=== PATIENT | male | born 1965 | race Caucasian/White ===

== ENCOUNTER 2021-05-13 07:25 | Day surgery (SDC) | payer OTHER ==
[~2021-05-13] VITALS: Ht 182.9 cm; Wt 88.0 kg
--- NOTE | 2021-05-13 09:20 | NUR ---
05/13/21 0920 Rosina Stover 0916- PT ARRIVES TO PACU AWAKE AND TALKING. PT REPORTS NO PAIN OR NAUSEA. RESP EVEN AND UNLABORED. OXYGEN SAT MID TO HIGH 90'S ON 3L VIA NC.
--- NOTE | 2021-05-14 13:24 | PATH ---
[facility] [address] [place], [place] [address] Signed SPECIMEN(S): A COLON POLYP AT 70 CM SPECIMEN SOURCE: A. COLON POLYP AT 70 CM CLINICAL HISTORY: Screening colonoscopy. Postop: Polyp x 1, diverticulosis. MICROSCOPIC DESCRIPTION: Histologic sections of all submitted blocks are examined by light microscopy. These findings, together with the gross examination, support the pathologic diagnosis. FINAL PATHOLOGIC DIAGNOSIS: Colon, 70 cm, polypectomy: - Tubular adenoma. BRP:em:C2NR GROSS DESCRIPTION: The specimen, labeled "JH, 1," and designated on the requisition "colon polyp at 70 cm," is received in formalin and consists of one rosales soft tissue fragment that measures 0.3 cm in greatest dimension. The specimen is entirely submitted in cassette (A1). AT (under the direct supervision of a pathologist) The Gross Description was prepared using a voice recognition system. The report was reviewed for accuracy; however, sound-alike word errors, addition and/or deletions may occur. If there is any question about this report, please contact Client Services. PERFORMING LABORATORY: The technical component was performed by [employer], [address] [place] [id number] (21 Dealer: Sherley Riggs MD; CLIA# [id number]). The professional interpretation was performed by [employer], [facility], [address] [place] [place] [address]. Diagnostician: Vinay Willis MD Pathologist Electronically Signed 05/14/2021 Copies: PATIENT NAME: STACEY KING PATHOLOGY DATE OF : 67 REPORT #: [id number] PHYSICIAN: TEMI RICARDO PCP: PILLO PHILIP REPORT IS CONFIDENTIAL AND NOT TO BE RELEASED WITHOUT AUTHORIZATION [address] [address] Signed ~ PATIENT NAME: STACEY KING PATHOLOGY DATE OF : 67 REPORT #: [id number] PHYSICIAN: TEMI RICARDO PCP: PILLO PHILIP REPORT IS CONFIDENTIAL AND NOT TO BE RELEASED WITHOUT AUTHORIZATION
--- NOTE | 2021-05-17 10:04 | OR ---
[facility] [address] [place], [place] [address] Signed DATE OF OPERATION: 05/13/2021 SURGEON: Rasheed Hernandez MD PREOPERATIVE DIAGNOSIS: Colon screening. POSTOPERATIVE DIAGNOSES: 1. Sigmoid diverticulosis. 2. Sessile polyp at 70 cm. 3. Internal hemorrhoidal changes. 4. Normal prostate. PROCEDURE: Total colonoscopy to cecum with cold snare polypectomy x1. ANESTHESIA: Intravenous sedation fentanyl 150 mcg, Versed 6 mg. INDICATION: This 56-year-old white man is a patient of LUZMA Yeung. He is referred for colon screening. He has no family history of colon cancer and no symptoms of bleeding, diarrhea or constipation. He understands risks of bleeding, infection, and perforation related to colonoscopy and wished to proceed. FINDINGS: The prep was good. Complete colonoscopy was undertaken to the cecum without question. Number of sigmoid diverticula but no evidence of stricture or other problem. There was a sessile polyp at approximately 70 cm which was excised with cold snare polypectomy technique. Most but not all the polyp was retrieved for pathology, though it was completely excised. Additionally, he was noted to have a normal prostate exam. Internal hemorrhoidal changes were noted without sign of bleeding or other problem. DESCRIPTION OF PROCEDURE: The patient was brought to the endoscopy suite and placed in lateral decubitus position, given intravenous sedation to the point of slurred speech and nystagmus. Digital rectal examination was normal including a normal prostate with normal fissure and symmetric right and left prostatic lobe. An Olympus video colonoscope was passed in the rectum and manipulated into the sigmoid Electronically Signed By: RASHEED HERNANDEZ MD 05/17/21 1004 PATIENT NAME: STACEY KING OPERATIVE REPORT DATE OF : 67 REPORT #: [id number] PHYSICIAN: RASHEED HERNANDEZ MD PCP: BRIDGET TIDWELL PAC REPORT IS CONFIDENTIAL AND NOT TO BE RELEASED WITHOUT AUTHORIZATION [facility] [address] [place], [place] [address] Signed where diverticular changes were noted. The scope was advanced ultimately to the cecum. The ileocecal valve and appendiceal orifice were normal. The colon was less well prepped on the right side, but certainly adequate for purpose at hand. Irrigation was undertaken as necessary. The scope was withdrawn. Examination throughout showed no sign of abnormality until approximately 70 cm from the anal verge, where a sessile polyp was noted, this was excised with cold snare technique. Further withdrawal of the scope confirmed diverticular change of the sigmoid. Upon withdrawal to the rectum, retroflexed view did show internal hemorrhoidal change, but no sign of complication from the scope was straightened, withdrawn and removed. The patient was taken to the recovery room in good condition. CONCLUDING DIAGNOSES: 1. Diverticulosis. 2. Sessile polyp x1. 3. Normal prostate. PLAN: Recommend high-fiber diet. Repeat colonoscopy in five years, sooner if clinically indicated. He will return to the ongoing care of Bridget Tidwell otherwise. MD RICARDO Hawkins/SAMSON /[id number] cc: Bridget Tidwell PA-C Copies: BRIDGET TIDWELL ~ Electronically Signed By: RASHEED HERNANDEZ MD 05/17/21 1004 PATIENT NAME: STACEY KING OPERATIVE REPORT DATE OF : 67 REPORT #: [id number] PHYSICIAN: RASHEED HERNANDEZ MD PCP: BRIDGET TIDWELL PAC REPORT IS CONFIDENTIAL AND NOT TO BE RELEASED WITHOUT AUTHORIZATION
== END 2021-05-13 09:51 | disposition home or self-care (01) ==
LOC: OPS 07:25 → DS 07:25 → OPS 08:30
PROVIDERS: ATTEND Surgery
PROC: 0DBE8ZX Excision of Large Intestine, Via Natural or Artificial Opening Endoscopic, Diagnostic (ICD-10-PCS; principal; 2021-05-13 08:30)
DX: Z12.11 Encounter for screening for malignant neoplasm of colon (principal); D12.6 Benign neoplasm of colon, unspecified; K57.30 Diverticulosis of large intestine without perforation or abscess without bleeding; K64.8 Other hemorrhoids; J45.909 Unspecified asthma, uncomplicated; Z90.09 Acquired absence of other part of head and neck; Z98.890 Other specified postprocedural states
CPT/HCPCS: 99153; G0500; J2250; J3010; J7121; U0003

== ENCOUNTER 2024-10-06 05:52 | Day surgery (SDC) | payer OTHER ==
[2024-09-22 16:50] VITALS: BP 123/81
[~2024-10-06] VITALS: Ht 182.9 cm; Wt 88.6 kg
[~2024-10-06 05:52] MED LIST: ALLER-TEC10 MG PO; FENOFIBRATE145 MG PO; LACTATED RINGER'S 1,000 ML IV SCH; MELATONIN10 M4 SL; MULTI-DAY PLUS1 EACH PO; OSTERA TABLET1 EACH PO; SINGULAIR10 MG PO; VIT C-ECHINACE1 EACH PO
[2024-10-06 06:15] VITALS: BP 120/76
[2024-10-06] MEDS ORDERED: ondansetron HCL 4 MG/2 ML VIAL ONE (06:56)
[2024-10-06] MEDS ORDERED: LIDOCAINE HCL 4% 5 ML AMP ONE (06:56)
[2024-10-06] MEDS ORDERED: propofoL 200 MG/20 ML VIAL ONE ×2 (06:56→07:51)
[2024-10-06] MEDS ORDERED: MIDAZOLAM HCL 2 MG/2 ML VIAL ONE (06:56)
[2024-10-06] MEDS ORDERED: FAMOTIDINE 20 MG/ 2 ML VIAL ONE (06:56)
[2024-10-06] MEDS ORDERED: KETOROLAC TROMETHAMINE 30 MG/ML VIAL ONE (06:56)
[2024-10-06] MEDS ORDERED: METOCLOPRAMIDE HCL 10 MG/2 ML SDV ONE (06:56)
[2024-10-06] MEDS ORDERED: SUCCINYLCHOLINE IN 0.9% NACL 200 MG/10 ML SYRINGE ONE (06:56)
[2024-10-06] MEDS ORDERED: SUGAMMADEX SODIUM 200 MG/2 ML ML ONE (06:56)
[2024-10-06] MEDS ORDERED: ROCURONIUM BROMIDE 50 MG/5 ML SYR ONE (06:56)
[2024-10-06] MEDS ORDERED: DEXAMETHASONE SOD PHOS 4 MG/ML VIAL ONE (06:56)
[2024-10-06] MEDS ORDERED: LACTATED RINGER'S 1,000 ML IV ONE (06:56)
[2024-10-06] MEDS ORDERED: fentaNYL citrate 100 MCG/2 ML VIAL ONE (06:56)
[2024-10-06] MEDS ORDERED: HEParin SOD (PORCINE) 5,000 UNIT/ML SDV SUB-Q SCH (07:00)
[2024-10-06] MEDS ORDERED: LIDOCAINE HCL 1% 5 ML SDV INJ ONE (07:00)
[2024-10-06] MEDS ORDERED: IBLOOD GLUCOSE TEST STRIP 1 EA TEST VI PRN ×2 (07:00→07:30)
[2024-10-06] MEDS ORDERED: CEFAZOLIN SODIUM 2 GM/20 ML SYR IV SCH (07:00)
--- NOTE | 2024-10-06 07:27 | NUR ---
VISITED DURING SPIRITUAL CARE ROUNDS. PT SUPPORTED BY IN ROOM, NO OVERT SIGNS OF ANXIETY, BOTH DENIED IMMEDIATE NEEDS. HOME THEATER EXPERIENCE EXPERT PROVIDED SUPPORTIVE PRESENCE, HOSPITALITY, PRAYER. PT AND EXPRESSED GRATITUDE.
[2024-10-06] MEDS ORDERED: METOCLOPRAMIDE HCL 10 MG/2 ML SDV IV PRN (07:30)
[2024-10-06] MEDS ORDERED: droPERidol 5 MG/2 ML VIAL IV PRN (07:30)
[2024-10-06] MEDS ORDERED: ondansetron HCL 4 MG/2 ML VIAL IV PRN (07:30)
[2024-10-06] MEDS ORDERED: PROCHLORPERAZINE EDISYLATE 10 MG/2 ML VIAL IV PRN (07:30)
[2024-10-06] MEDS ORDERED: MORPHINE SULFATE 10 MG/ML VIAL IV PRN (07:30)
[2024-10-06] MEDS ORDERED: fentaNYL citrate 50 MCG/ML SDV IV PRN (07:30)
[2024-10-06] MEDS ORDERED: NALOXONE HCL 0.4 MG SYR IV PRN ×2 (07:30→08:45)
[2024-10-06] MEDS ORDERED: OXYCODON-ACETA1 EAC2 PO (08:35)
[2024-10-06] MEDS ORDERED: ACETAMINOPHEN500 MG PO (08:35)
[2024-10-06] MEDS ORDERED: IBUPROFEN600 MG PO (08:35)
[2024-10-06] MEDS ORDERED: LACTATED RINGER'S 1,000 ML IV SCH (08:45)
[2024-10-06] MEDS ORDERED: IBUPROFEN 600 MG TAB PO PRN (08:45)
[2024-10-06] MEDS ORDERED: ACETAMINOPHEN 500 MG TAB PO PRN (08:45)
[2024-10-06] MEDS ORDERED: OXYCODONE/APAP 7.5/325 TAB PO PRN (08:45)
[2024-10-06 09:05] VITALS: BP 107/68
--- NOTE | 2024-10-06 09:12 | NUR ---
PT ARRIVED BACK TO DAY SURGERY VIA BED. DRESSING C/D/I. PT RATING PAIN 4/10 IN ABDOMEN AT THIS TIME. PT GIVEN CRACKER WATER AND PUDDING. AT BEDSIDE.
--- NOTE | 2024-10-06 09:30 | NUR ---
10/06/24 0930 Lul,Denisse 0823 PT ARRIVED TO PACU ON 10L VIA MASK AND ORAL AIRWAY IN PLACE, JAW THRUST USED TO MAINTAIN AIRWAY. RESP EVEN AND UNLABORED. 0825 PT STARTED COUGHING AND ORAL AIRWAY REMOVED, HOB INCREASED AND SUCTIONS USED BY THIS RN AND AIRCRAFT MECHANIC ELECTRICAL AND RADIO. PT RED IN FACE AND RN ENCOURAGES DEEP BREATHING AND REORIENTING TO PACU. 0831 COUGHING DECREASED BUT CONTINUES, ABD BRACED BY RN. PT GRABBING FOR HIS FACE AND O2 MASK, O2 MASK REMOVED. PT REPORTS HE WANTS TO BLOW HIS NOSE. TISSUE GIVEN. PT SLIGHTLY OPENING HIS EYES. PT ABLE TO BLOW HIS NOSE. PT REPORTS SMALL AMOUNT OF NAUSEA. 0849 PT MORE AWAKE AND REPORTS PAIN 6/10 AND PAIN MEDICATION GIVEN. PLAN OF CARE DISCUSSED AND PT ASKING FOR WATER. 0852 PT SIPPING WATER AND DENEIS NAUSEA AND REPORTS TOLERBALE PAIN 4/10. VSS. 0905 PT TRANSFERED TO DS AND AT BEDSIDE. REPORT TO DS RN, AND ALL QUESTIONS ANSWERED. DRESSING CDI AND VSS. PT SIPPING WATER AND SNACK AT BEDSIDE.
--- NOTE | 2024-10-06 09:30 | NUR ---
8568-INTO PTS ROOM TO CHECK ON PT AFTER EATING AND TAKING PO PAIN MEDS. PT CONT TO DENY NAUSEA AND HAS TOLERATED PO FLUIDS/FOOD WITHOUT ISSUES NOTED/REPORTED. SURIGCAL SITE WITH ICE IN PLACE. PT REPORTS THIS HELP WITH PAIN AND RATES PAIN 5/10 AND STATES "TOLERABLE" AND THAT HE FEELS PAIN MEDS GIVEN APPROX 15 M INS EARLIER WILL HELP TAKE IT DOWN EVEN FARTHER ON PAIN SCALE. PT EDUCATED ON USE OF HOLDING PILLOW TO ABD WITH POSITION CHANGES, COUGHING, AND DEEP BREATHING TO HELP MITIGATE PAIN WITH THESE ACTIVITIES. PT DEMONSTRATED UNDERSTANDING. REMAINS AT BEDSIDE. SURGICAL SITE OBSERVED. NOTED SMALL AMT OF SANGUINOUS DRAIANGE SHADOWING ON R BORDER APPROX MIDWAY DOWN. DRESSING REMAINS FIRMLY INTACT. PT WITH URINAL AT BEDSIDE BUT DOES NOT FEEL URGE TO VOID AT THIS TIME. IV INTACT AND INFUSING PER ORDERS. ICE WATER REFILLED. BED IN LOW POSITION, WHEELS LOCKED, CALL LIGHT WITHIN REACH. ALL QUESTIONS ANSWERED. REMAINS AT PTS BEDSIDE.
[2024-10-06 10:05] VITALS: BP 119/87
--- NOTE | 2024-10-06 10:15 | NUR ---
0954-INTO PTS ROOM FOR ROUTINE REASSESSMENT & DISCHARGE TEACHING. REMAINS AT PTS BEDSIDE. IV SITE ASSESSED, PT TOLERATING PO FOOD AND FLUIDS WELL/IV SITE SL'D AT THIS TIME. PT DENIES ANY NAUSEA WHEN ASKED. PT REPORTS PO PAIN MEDICATION WAS EFFECTIVE IN REDUCING PAIN AND RATES AT 3/10. PT REPORTS THIS TO BE TOLERABLE FOR HIM AND IS USING ICE TO SURGICAL SITE FOR ADDTIONAL PAIN RELIEF. PT NOTED WITH CLR, YELLOW URINAL IN URINAL AT BEDSIDE. URINAL EMPTIED OF APPROX 300ML. PT REPORTS HE VOIDED AT APPROX 0945. PT OKAY'ED TO DRESS FOR DISCHARGE. CALL LIGHT WITHIN PTS REACH AND AT [facility] TO ASSIST PT IN DRESSING. 1004-INTO PTS ROOM TO CONT REASSESSMENT AND DC EDUCATION AFTER PT FINISHED DRESSING. VS TAKEN. SURGICAL SITE OBSERVED POST AMBULATION IN ROOM. NOTED VERY SMALL AMT OF ADDITIONAL SHADOWING ON BOTTOM OF DRESSING. DRESSING REMAINS INTACT. PT PROVIDED F/U APPT INFO AND EDUCATION ON RX'S AND PAIN CONTROL. PT EDUCATED ON COLD THERAPY SAFETY AND HAVING A BARRIER IN PLACE BETWEEN SKIN AND ICE PACK WHEN USING, SUCH A HAND TOWEL. PT AND BOTH VERBALIZED UNDERSTANDING. PT EDUCATED ON NO LIFTING ANYTHING GREATER THAN 20 POUNDS FOR 4 WEEKS. PT EDUCATED ON WOUND CARE AND INFORMED THAT DRSG MAY BE REMOVED AFTER 48 HOURS ON 10/08/24, HOWEVER STERI-STRIPS ARE TO REMAIN IN PLACE AND ALLOWED TO FALL OFF NATURALLY. AGAIN BOTH PT AND VERBALIZED UNDERSTANDING. ALL QUESTIONS ANSWERED. 1015-IV REMOVED. TIP APPEARS INTACT. PRESSURE DRSG APPLIED WITH GAUZE AND COBAN. DECLINED TO LEAVE PTS SIDE TO PULL CAR AROUND INSISTING THEY ARE PARKED IN "FIRST HANICAPPED PARKING SPOT" WHEN EXITING HOSPITAL. WC OBTIANED TO TAKE PT OUT TO CAR IN.
--- NOTE | 2024-10-06 10:20 | NUR ---
PT DISCHARGED FROM DS VIA WC TO PASSENGER SIDE OF WIFES VEHICLE. WALKED WITH THIS RN TO TAKE PT OUT. ALL PERSONAL BELONINGS TAKEN WITH PT. VISUALIZED PT ENTERING PASSENGER SIDE OF VEHICLE AND ENTERING DRIVIERS SIDE OF VEHICLE AND DRIVING OUT OF PARKING LOT.
--- NOTE | 2024-10-06 14:22 | OR ---
[facility] [address] [place], [place] [address] Signed DATE OF OPERATION: 10/06/2024 SURGEON: Rasheed Hernandez MD PREOPERATIVE DIAGNOSIS: Umbilical hernia (incarcerated). POSTOPERATIVE DIAGNOSIS: Umbilical hernia (incarcerated), defect 1 x 2 cm, incarcerated viscus properitoneal fat. PROCEDURE: Repair of incarcerated umbilical hernia with primary closure and without implantation of mesh. ANESTHESIA: General endotracheal, Rasheed Kathleen CRNA and local 0.25% Marcaine with epinephrine 10 mL. INDICATIONS FOR THE PROCEDURE: This 59-year-old white man is a patient of Pillo Philip PA-C and was noted to have an umbilical hernia. It is episodically uncomfortable for him. It appears unlikely to be reducible on clinical examination. Ultrasound showed the hernia contains only fat. The patient is admitted at this time to undergo repair of the hernia. The defect may be small enough that mesh is not necessary. He understands the risk of operation including but not limited to bleeding, infection, recurrence, and other unforeseen complications and wished to proceed. FINDINGS: Incarcerated viscus was indeed properitoneal fat, densely adherent to the dermis of the umbilical skin itself. Reduction of the herniated fat was easily accomplished. The defect measured 1 x 2 cm measured. Closure of the defect was appropriate for repair. Mesh was not required. DESCRIPTION OF PROCEDURE: The patient was brought to the operating room, given a general endotracheal anesthetic and preoperative antibiotic Ancef, sequential compression device stockings and heparin subcutaneously. The abdomen was clipped and prepared with a chlorhexidine solution and draped sterilely. Attempts at reduction of the hernia once fully relaxed were unsuccessful. A curvilinear incision was made to the left of the umbilicus in the umbilical fold. Dissection carried through the dermis with sharp dissection. Herniated fat to the underlying dermis was freed from the skin of the umbilicus isolating the Electronically Signed By: RASHEED HERNANDEZ MD 10/06/24 6796 PATIENT NAME: STACEY KING OPERATIVE REPORT DATE OF : 67 REPORT #: [id number] PHYSICIAN: RASHEED HERNANDEZ MD PCP: PILLO PHILIP PAC REPORT IS CONFIDENTIAL AND NOT TO BE RELEASED WITHOUT AUTHORIZATION [facility] [address] [place], [place] [address] Signed herniated properitoneal fat completely. The fascial defect was freed from the fat as well that reduced the properitoneal space. Blunt dissection circumferentially with the tip of the finger showed no sign of other abnormality. The defect was measured and was found to be 1 x 2 cm in length. Appropriate repair was deemed primary closure rather than implantation of mesh. This was accomplished transversely with interrupted 0-Prolene suture in a horizontal mattress configuration. A 10 mL of 0.25% Marcaine with epinephrine injected locally. The dermis of the umbilicus was secured to the fascia with 2-0 Vicryl. The subcutaneous space closed similarly and the skin closed with interrupted 3-0 Vicryl. Steri-Strips were applied as was Acticoat dressing. He tolerated the procedure well. There were no complications and blood loss was minimal. MD RICARDO Hawkins/HANGL /[id number] cc: Pillo Philip PA-C Copies: PILLO PHILIP ~ Electronically Signed By: RASHEED HERNANDEZ MD 10/06/24 1422 PATIENT NAME: STACEY KING OPERATIVE REPORT DATE OF : 67 REPORT #: [id number] PHYSICIAN: RASHEED HERNANDEZ MD PCP: PILLO PHILIP REPORT IS CONFIDENTIAL AND NOT TO BE RELEASED WITHOUT AUTHORIZATION
== END 2024-10-06 10:20 | disposition home or self-care (01) ==
LOC: DS 05:52
PROVIDERS: ATTEND Surgery
PROC: 0WQF0ZZ Repair Abdominal Wall, Open Approach (ICD-10-PCS; principal; 2024-10-06 07:30)
DX: K42.0 Umbilical hernia with obstruction, without gangrene (principal); Z86.0101 Personal history of adenomatous and serrated colon polyps
CPT/HCPCS: 00750; C1781; J0330; J0690; J1100; J1644; J1885; J2250; J2405; J2704; J2765; J3010; J3490; J7121